=== PATIENT | male | born 1955 | race Caucasian/White ===

== ENCOUNTER 2018-10-22 08:00 | Outpatient (CLI) | payer MEDICARE, MEDICAID ==
[2018-10-22] VITALS (8 sets, daily range): BP systolic 118–151; BP diastolic 71–99
[~2018-10-22] VITALS: Ht 182.9 cm; Wt 105.9 kg
[~2018-10-22 08:00] MED LIST: ALBU18HF2 INH; BAC10T PO; FENO135C; HYDR200T84 PO; LORA-512 PO; METO50TA7 PO; MULT-963 PO; NABUMETONE 500 MG PO; NAS0.025NS BOTHNARES; NITR0.4T48 SL; OMEP20TA5 PO; PER5325T PO; SIMV20TA5 PO; TERA2CAP4 PO; [UNRECOGNIZED DRUG - CODE]
[2018-10-22] MEDS ORDERED: aminophylline 250mg/10ml inj. IV PRN (08:55)
[2018-10-22] MEDS ORDERED: metoprolol tartrate 1mg/ml inj IV PRN (08:55)
[2018-10-22] MEDS ORDERED: nitroGLYCERIN 0.4mg SUBLingual tab SL PRN (08:55)
[2018-10-22] MEDS ORDERED: regadenoson 0.4mg/5ml syringe IV ONE ×2 (08:55→09:32)
[2018-10-22] MEDS ORDERED: atropine 0.1mg/ml 10ml syringe IV PRN (08:55)
[2018-10-22] MEDS ORDERED: normal saline 500ml IV soln 500 ML IV ONE (08:55)
[2018-10-22] MEDS ORDERED: aminophylline inj. 10 ML IV ONE (09:32)
== END 2018-10-22 23:59 | disposition home or self-care (01) ==
LOC: RAD 08:00
PROVIDERS: ATTEND Internal Medicine Cardiovascular Disease
DX: R06.02 Shortness of breath (principal); R07.9 Chest pain, unspecified; R42 Dizziness and giddiness; I10 Essential (primary) hypertension; I25.2 Old myocardial infarction; Z98.890 Other specified postprocedural states; Z87.891 Personal history of nicotine dependence
CPT/HCPCS: 78452; 93017; A9500; J0280; J7030; J0461

== ENCOUNTER 2018-11-12 12:30 | Outpatient (CLI) | payer MEDICARE, MEDICAID | END 2018-11-12 23:59 | disposition home or self-care (01) | LOC: CARD DIAG 12:30 | PROVIDERS: ATTEND Internal Medicine Cardiovascular Disease | DX: I05.8 Other rheumatic mitral valve diseases (principal); I10 Essential (primary) hypertension; I25.2 Old myocardial infarction; Z98.890 Other specified postprocedural states; Z87.891 Personal history of nicotine dependence | CPT/HCPCS: 93306 ==

== ENCOUNTER → 2024-02-03 | Outpatient (CLI) | payer BC, MEDICAID ==
[~2024-02-03] MED LIST changes: +ASPI-1468; +HYDR200T73 PO; -HYDR200T84 PO; +OMEP20TA43 PO; -OMEP20TA5 PO; +SIMV-42 PO; -SIMV20TA5 PO; -[UNRECOGNIZED DRUG - CODE]; +iohexol 300mg/ml 100ml inj. ONE
[2024-02-03 10:55] LABS: ALBUMIN 3.7 G/DL (3.4-5.0); ANION GAP 8 (8-16); BLOOD UREA NITROGEN 17 MG/DL (7-18); BUN/CREATININE RATIO 16.8 (10.0-20.0); CALCIUM 9.4 MG/DL (8.5-10.1); CHLORIDE 104 MMOL/L (99-107); CREATININE 1.01 MG/DL (0.60-1.10); GLUCOSE 189 MG/DL (70-104); POTASSIUM 4.4 MMOL/L (3.5-5.1); SODIUM 141 MMOL/L (135-145); eGFR 73 ML/MIN
== END | disposition home or self-care (01) ==
LOC: RAD 10:13
PROVIDERS: ATTEND Urology
DX: C61 Malignant neoplasm of prostate (principal); D49.511 Neoplasm of unspecified behavior of right kidney; N28.1 Cyst of kidney, acquired; K57.30 Diverticulosis of large intestine without perforation or abscess without bleeding; N28.89 Other specified disorders of kidney and ureter; K52.89 Other specified noninfective gastroenteritis and colitis; K76.0 Fatty (change of) liver, not elsewhere classified; K50.90 Crohn's disease, unspecified, without complications; I25.10 Atherosclerotic heart disease of native coronary artery without angina pectoris; K86.89 Other specified diseases of pancreas; K57.10 Diverticulosis of small intestine without perforation or abscess without bleeding; R59.0 Localized enlarged lymph nodes
CPT/HCPCS: 36415; 74178; 80048; 84153; 84154; Q9967